=== PATIENT | female | born 1955 | race Two or more races ===

== ENCOUNTER 2020-06-19 10:18 | Inpatient (IN) | payer BC, OTHER ==
[~2020-06-19] VITALS: Ht 152.4 cm; Wt 74.9 kg
[2020-06-19] MEDS ORDERED: ACETAMINOPHEN 500 MG TAB PO ONE (11:45)
[2020-06-19] MEDS ORDERED: cefTRIAXone SOD 1,000 MG VL IM ONE (11:45)
[2020-06-19] MEDS ORDERED: SODIUM CHLORIDE 0.9% 1,000 ML IV ONE (14:45)
[2020-06-19] MEDS ORDERED: AZITHROMYCIN 500MG/ 250ML 250 ML IV ONE (14:45)
[2020-06-19 15:07] LABS: Basophils # (auto) 0.1 10 ^3/uL (0-0.2); Basophils % (auto) 0.7 % (0.0-2.0); Eosinophils # (auto) 0 10 ^3/uL (0-0.8); Eosinophils % (auto) 0.1 % (0.0-7.0); Hematocrit 40.8 % (36.0-46.0); Hemoglobin 13.7 g/dL (12.2-16.2); Lymphocytes # (auto) 1.4 10 ^3/uL (0.4-5.4); Lymphocytes % (auto) 10.3 % (10.0-50.0); Mean Corpuscular Hemoglobin 29.8 pg (28.0-32.0); Mean Corpuscular Hgb Conc. 33.5 g/dL (32.0-36.0); Mean Corpuscular Volume 88.9 fL (80.0-100.0); Monocytes # (auto) 1.2 10 ^3/uL (0-1.3); Monocytes % (auto) 9.3 % (0.0-12.0); Neutrophils # (auto) 10.6 10 ^3/uL (1.6-8.6); Neutrophils % (auto) 79.6 % (37.0-80.0); Nucleated Red Blood Cells % 0.1 %; Platelet Count (auto) 175 10^3/uL (140-450); Red Blood Cells 4.59 10^6/uL (4.0-5.20); Red Cell Distribution Width 13.9 % (11.8-14.3); White Blood Cell 13.3 10^3/uL (4.4-10.8)
[2020-06-19 15:26] LABS: Albumin 3.5 g/dL (3.4-5.0); Anion Gap 9 (5-15); Blood Urea Nitrogen 20 mg/dL (7-18); Calcium 8.2 mg/dL (8.5-10.1); Carbon Dioxide 24 mmol/L (21-32); Chloride 101 mmol/L (98-107); Glucose 104 mg/dL (74-106); Magnesium 2.5 mg/dL (1.6-2.6); Potassium 3.2 mmol/L (3.5-5.1); Sodium 134 mmol/L (136-145)
[2020-06-19 15:29] LABS: Alanine Aminotransferase 36 U/L (13-56); Alkaline Phosphatase 92 U/L (45-117); Aspartate Aminotransferase 22 U/L (15-37); BUN/Creatinine Ratio 30.3; Bilirubin, Total 0.6 mg/dL (0.2-1.0); GFR African American 116 mL/min; GFR Non-African American 96 mL/min
[2020-06-19] MEDS ORDERED: NITROGLYCERIN 0.4 MG SL TAB SL PRN (15:30)
[2020-06-19] MEDS ORDERED: MORPHINE SULF INJ 2 MG/ML SYRINGE 1ML IV PRN (15:30)
[2020-06-19] MEDS ORDERED: ACETAMINOPHEN 500 MG TAB PO PRN (15:30)
[2020-06-19 16:33] LABS: CRP High Sensitivity 7.52 mg/dL (< 0.3)
[2020-06-19] MEDS ORDERED: D5W/ SOD CHL 0.9%/KCL 20MEQ 1,000 ML IV ONE (17:00)
[2020-06-19 20:00] LABS: Urine Bacteria NONE SEEN /hpf (None Seen); Urine Blood Negative /uL (Negative); Urine Specific Gravity 1.007 (1.001-1.035); Urine WBC 2 /hpf (0 - 5)
--- NOTE | 2020-06-19 21:30 | NUR ---
OPENING SHIFT NOTE Patient Brought to unit from ER Patient is AOx4 and has no signs of distress or SOB. Patient HOB at 30 degrees and bed locked in lowest position. Bed alarm on for safety. POC discussed with patient and patient verbally agreed to understanding. Will continue to monitor.
[2020-06-19] MEDS: DOXYCYCLINE 100MG/250ML 250 ML IV SCH (22:40)
[2020-06-19] MEDS: ALBUTEROL SULF HFA 90MCG INH 200DOSE IN SCH (22:45)
--- NOTE | 2020-06-19 22:45 | NUR ---
Respiratory note: PT RECIEVED ON RA. PT AWAKE AND ALERT. NO RESP DISTRESS NOTED. SPO2 95%, HR 84, RR 20. BS CLEAR/DIMINISHED T/O. NO PRN TX INDICATED AT THIS TIME. PT AWARE TO CALL IF SOB. Addendum: 06/20/20 at 0128 by MICHELLE SOLOMON, RT RT TX NOT GIVEN, COVID TEST STILL PENDING.
[2020-06-19] MEDS: BUDESONIDE (INHALATION) 180 MCG IH IN SCH (22:48)
[2020-06-19 22:54] VITALS: BP 122/75
[2020-06-19 23:00] VITALS: BP 122/75
--- NOTE | 2020-06-19 23:30 | NUR ---
IV removal - left hand infiltrated and pain noted at site. IV DC'd with sterile technique, catheter fully intact. Pressure dressing applied to site. Patient tolerated procedure well.
--- NOTE | 2020-06-19 23:45 | NUR ---
IV insertion IV access obtained, via clean sterile technique by inserting 22 gauge catheter at left wrist after 2 attempt(s). IV secured properly. No trauma to site. Patient tolerated procedure well.
[2020-06-20] MEDS: ALBUTEROL SULF HFA 90MCG INH 200DOSE IN SCH ×4 (06:00→21:37)
[2020-06-20 06:40] LABS: Basophils # (auto) 0 10 ^3/uL (0-0.2); Basophils % (auto) 0.5 % (0.0-2.0); Eosinophils # (auto) 0 10 ^3/uL (0-0.8); Hematocrit 35.7 % (36.0-46.0); Hemoglobin 12.1 g/dL (12.2-16.2); Lymphocytes # (auto) 1.5 10 ^3/uL (0.4-5.4); Mean Corpuscular Hemoglobin 29.8 pg (28.0-32.0); Mean Corpuscular Hgb Conc. 33.8 g/dL (32.0-36.0); Mean Corpuscular Volume 88.3 fL (80.0-100.0); Monocytes # (auto) 0.8 10 ^3/uL (0-1.3); Monocytes % (auto) 9.8 % (0.0-12.0); Neutrophils # (auto) 5.5 10 ^3/uL (1.6-8.6); Neutrophils % (auto) 70.7 % (37.0-80.0); Platelet Count (auto) 194 10^3/uL (140-450); Red Blood Cells 4.04 10^6/uL (4.0-5.20); Red Cell Distribution Width 13.4 % (11.8-14.3); White Blood Cell 7.7 10^3/uL (4.4-10.8)
[2020-06-20] MEDS: BUDESONIDE (INHALATION) 180 MCG IH IN SCH ×2 (06:49→21:37)
--- NOTE | 2020-06-20 06:49 | NUR ---
Respiratory note: MEDICATION NOT AVAILABLE AT THIS TIME. PHARMACY NOTIFIED. NO DISTRESS NOTED. HR 62, RR 18, POX 94% ON RA.
[2020-06-20 06:56] LABS: Albumin 2.8 g/dL (3.4-5.0); Calcium 7.7 mg/dL (8.5-10.1); Potassium 3.2 mmol/L (3.5-5.1)
[2020-06-20 07:00] LABS: BUN/Creatinine Ratio 23.4; Bilirubin, Total 0.5 mg/dL (0.2-1.0); Total Protein 6.7 g/dL (6.4-8.2)
--- NOTE | 2020-06-20 07:15 | NUR ---
opening shift note Assumed care patient in bed AOx4. No s/s of distress noted at this time, patient denies pain. Update given regarding POC and all questions and concerns addressed. Bed in lowest, locked position, call light within reach. Will continue care.
[2020-06-20] MEDS: DexAMETHasone SOD PHOS 10MG/1ML VIAL INJ IV SCH (09:35)
[2020-06-20] MEDS: ASCORBIC ACID 1,000 MG TAB PO SCH (09:36)
[2020-06-20] MEDS: ZINC SULFATE 220mg CAP or TAB PO SCH (09:36)
[2020-06-20] MEDS: DOXYCYCLINE 100MG/250ML 250 ML IV SCH ×2 (09:36→21:31)
[2020-06-20] MEDS: CHOLECALCIFEROL (VITD3) 2,000 UNIT CAP PO SCH (09:36)
[2020-06-20] MEDS: ENOXAPARIN SOD 40 MG/0.4 ML SYRINGE SC SCH (09:37)
[2020-06-20] MEDS ORDERED: PNEUMOCOCCAL VACC POLYS 25 MCG/0.5 ML VIAL IM ONE (10:00)
[2020-06-20 12:35] VITALS: BP 116/61
[2020-06-20 14:05] VITALS: BP 116/61
--- NOTE | 2020-06-20 15:15 | NUR ---
Spoke with family Received call from patient's niece Lili. Password verified and update on patient condition provided at this time.
[2020-06-20 16:38] VITALS: BP 94/61
--- NOTE | 2020-06-20 19:15 | NUR ---
OPENING SHIFT NOTE Assumed care of patient who is alert and oriented, currently on RA with no S/S of distress or SOB noted at this time. Patient denies any pain. Full linen changed due to patients coffee spilt. Patient is ambulatory without assistance, encouraged to call for assistance as needed. POC discussed with patient, all questions answered, patient verbalized understanding. Bed is locked, im lowest position, side rails up x2. Call light within reach, will continue to monitor PRN/Q1hr.
[2020-06-20 22:12] VITALS: BP 111/66
[2020-06-20] MEDS ORDERED: POTASSIUM CHL 20MEQ/100ML 100 ML IV ONE (22:45)
--- NOTE | 2020-06-21 00:20 | NUR ---
THALIA BEDSIDE No new orders at this time.
--- NOTE | 2020-06-21 04:32 | NUR ---
IV REMOVAL IV DC'd with clean sterile technique, catheter fully intact. Pressure dressing applied to site. Patient tolerated well.
--- NOTE | 2020-06-21 04:32 | NUR ---
IV INSERTION IV access obtained, via clean sterile technique by inserting a 22 gauge catheter at left forearm after 1 attempt. IV secured properly. No trauma to site. Patient tolerated well.
[2020-06-21 05:17] VITALS: BP 134/81
[2020-06-21] MEDS: ALBUTEROL SULF HFA 90MCG INH 200DOSE IN SCH ×3 (06:10→21:58)
[2020-06-21] MEDS: BUDESONIDE (INHALATION) 180 MCG IH IN SCH ×2 (06:10→21:58)
--- NOTE | 2020-06-21 07:42 | NUR ---
CARE ENDORSED TO DAY SHIFT RN
[2020-06-21 07:58] LABS: BUN/Creatinine Ratio 25.9; Calcium 8.7 mg/dL (8.5-10.1); Potassium 3.8 mmol/L (3.5-5.1)
[2020-06-21 08:51] VITALS: BP 126/88
[2020-06-21] MEDS: DexAMETHasone SOD PHOS 10MG/1ML VIAL INJ IV SCH (09:52)
[2020-06-21] MEDS: DOXYCYCLINE 100MG/250ML 250 ML IV SCH ×2 (09:53→21:32)
[2020-06-21] MEDS: ENOXAPARIN SOD 40 MG/0.4 ML SYRINGE SC SCH (09:53)
[2020-06-21] MEDS: CHOLECALCIFEROL (VITD3) 2,000 UNIT CAP PO SCH (09:53)
[2020-06-21] MEDS: ASCORBIC ACID 1,000 MG TAB PO SCH (09:53)
[2020-06-21] MEDS: ZINC SULFATE 220mg CAP or TAB PO SCH (09:54)
[2020-06-21] MEDS ORDERED: POTASSIUM CHL 20 Meq TABLET PO SCH (10:00)
[2020-06-21 12:30] VITALS: BP 138/86
[2020-06-21] MEDS ORDERED: traMADol HCL 50 MG TAB PO PRN (12:45)
--- NOTE | 2020-06-21 19:18 | NUR ---
Patient care endorsed endorsed care to Jesus rn, pt sitting up in bed eating dinner now. Patient proning throughout the day as tolerated and doing IS as ordered. Pt on room air. No acute distress or sob noted. Call light within reach.
--- NOTE | 2020-06-21 19:20 | NUR ---
OPENING SHIFT NOTE Assumed care of patient who is alert and oriented, currently on RA with no S/S of distress or SOB noted at this time. Patient denies any pain. Patient is ambulatory without assistance, encouraged to call for assistance as needed. POC discussed with patient, all questions answered, patient verbalized understanding. Bed is locked, im lowest position, side rails up x2. Call light within reach, will continue to monitor PRN/Q1hr
[2020-06-21 22:00] VITALS: BP 124/81
[2020-06-22 05:00] VITALS: BP 114/72
[2020-06-22] MEDS: ALBUTEROL SULF HFA 90MCG INH 200DOSE IN SCH ×2 (06:06→13:23)
[2020-06-22] MEDS: BUDESONIDE (INHALATION) 180 MCG IH IN SCH (06:06)
[2020-06-22 09:00] VITALS: BP 123/77
[2020-06-22] MEDS: DexAMETHasone SOD PHOS 10MG/1ML VIAL INJ IV SCH (09:50)
[2020-06-22] MEDS: CHOLECALCIFEROL (VITD3) 2,000 UNIT CAP PO SCH (09:50)
[2020-06-22] MEDS: ZINC SULFATE 220mg CAP or TAB PO SCH (09:50)
[2020-06-22] MEDS: DOXYCYCLINE 100MG/250ML 250 ML IV SCH (09:50)
[2020-06-22] MEDS: ENOXAPARIN SOD 40 MG/0.4 ML SYRINGE SC SCH (09:50)
[2020-06-22] MEDS: ASCORBIC ACID 1,000 MG TAB PO SCH (09:50)
--- NOTE | 2020-06-22 12:37 | NUR ---
Nutrition Assessment Notes Please refer to link for full assessment notes. Est Energy needs: [id number] kcals (17-20 kcal/kgBW) Est Protein needs: 75-83 gms/day (1.0-1.1 gm/kgBW) Will continue to monitor and reassess prn. Addendum: 06/22/20 at [address] Amended: Links added.
[2020-06-22] MEDS ORDERED: HYDROCORTISONE ACET 25 MG RECTAL SUPP PR ONE (13:00)
[2020-06-22 13:04] VITALS: BP 136/78
[2020-06-22 17:00] VITALS: BP 139/81
--- NOTE | 2020-06-22 18:05 | NUR ---
Discharge instructions given as ordered. Encourage to follow up with PMD as instructed. All questions and concerns addressed. Patient verbalized understanding. Medication reconciliation form completed and copy given to patient. New prescription given to patient and educated on use, side effects, signs and symptoms and contraindications. IV removed with catheter intact, pressure dressing applied. Telemetry unit returned to ICU. Patient taken to vehicle via wheelchair with all personal belongings, accompanied by staff and patient's niece Lili picked her up. No distress noted at time of departure or sob.
== END 2020-06-22 18:05 | disposition home or self-care (01) | DRG 177 ==
LOC: ER 10:18 → TELE 10:19 → ER 13:11 → TELE-EAST 21:30
PROVIDERS: ADMIT Nurse Practitioner Acute Care; ATTEND Nurse Practitioner Acute Care
DX: U07.1 COVID-19 (principal); J12.89 Other viral pneumonia; I31.3 Pericardial effusion (noninflammatory); E66.9 Obesity, unspecified; Z68.32 Body mass index [BMI] 32.0-32.9, adult; E78.5 Hyperlipidemia, unspecified; E87.6 Hypokalemia; I10 Essential (primary) hypertension; Z79.51 Long term (current) use of inhaled steroids; Z82.49 Family history of ischemic heart disease and other diseases of the circulatory system; Z83.3 Family history of diabetes mellitus; D72.829 Elevated white blood cell count, unspecified
CPT/HCPCS: 36415; 36600; 71045; 74176; 80048; 80053; 81001; 82728; 82805; 83615; 83690; 83735; 84443; 84484; 85025; 85379; 86141; 87040; 87426; 94640; 96365; 96366; 96372; G0378; J0696; J1100; J3480; J3490